=== PATIENT | female | born 1985 | race Caucasian/White ===

== ENCOUNTER → 2020-07-05 07:33 | Outpatient (CLI) | payer OTHER, BC, SELFPAY ==
--- NOTE | ~2020-07-05 | US_ITS ---
EXAMINATION: US OB >= 14 weeks Fetus DATE: 07/05/2020 08:13 INDICATION: Renal survey TECHNIQUE: Multiple obstetric sonographic images performed. FINDINGS: No prior studies for comparison. There is a single living fetus in breech presentation. The placenta is posterior without placenta pr evia. Amniotic fluid volume is subjectively normal. cardiac activity and movement is noted with a heart rate of 150 beats per minute. The following anatomy was identified as normal: 4 chamber heart 3 vessel cord cord insertion kidneys urinary bladder stomach spine diaphragm ventricles cisterna magna cerebellum The following biometric data were obtained: BPD: 50mm corresponds to gestational age 21 weeks 0 days. Head circumference: 182 mm corresponds to gestational age 20 weeks 4 days. Abdominal circumference: 157 mm corresponds to gestational age 20 weeks 6 days. Femur length: 33 mm corresponds to gestational age 20 weeks 3 days. Head circumference to abdominal circumference ratio: 1.16 (normal range for expected gestational age is 1.06-1.25). Estimated weight: 369 grams +/- 55 grams using Hadlock method. IMPRESSION: 1: Single living intrauterine with an estimated gestational age of 20weeks 5days by current ultrasound measurements, with an EDC of 11/17/2020 in breech presentation. 2. Normal survey. Reviewed, dictated and finalized at location A. IMPRESSION: 1: Single living intrauterine with an estimated gestational age of 20 weeks 5days by current ultrasound measurements, with an EDC of 11/17/2020 in uche ech presentation. 2. Normal survey.
== END ==
PROVIDERS: Visit Provider Obstetrics & Gynecology
DX: Z36.9 Encounter for antenatal screening, unspecified (principal); Z3A.20 20 weeks gestation of pregnancy
CPT/HCPCS: 76805

== ENCOUNTER → 2020-09-13 07:58 | Outpatient (CLI) | payer OTHER, BC, SELFPAY ==
--- NOTE | ~2020-09-13 | US_ITS ---
EXAMINATION: US OB follow up DATE: 09/13/2020 08:29 INDICATION: Large for gestational age TECHNIQUE: Real-time transabdominal obstetric ultrasound. FINDINGS: Comparison ultrasound dated 07/05/2020 There is a single living fetus in vertex presentation. The placenta is posterior without placenta pr evia. cardiac activity and movement is noted with a heart rate of 137 beats per minute. T he amniotic fluid volume is normal. RUBA measures 22.6 cm (normal range for gestational age is 9-23.4 cm). The following biometric data were obtained: BPD: 81mm corresponds to gestational age 32 weeks 3 days. Head circumference: 293mm corresponds to gestational age 32 weeks 2 days. Abdominal circumference: 256mm corresponds to gestational age 29 weeks 6 days. Femur length: 56mm corresponds to gestational age 29 weeks 2 days. Estimated weight: 1500grams +/- 225grams, 18.2 percentile.] IMPRESSION: 1. Single living intrauterine in vertex presentation with an estimated gestational age of 30 weeks 5 days by inititial ultrasound. Appropriate interval growth. 2: Normal RUBA measures 22.6 cm. Reviewed, dictated and finalized at location A. GER SHIFT IMPRESSION: 1. Single living intrauterine in vertex presentation with an estimat ed gestational age of 30 weeks 5 days by inititial ultrasound. Appropriate int erval growth. 2: Normal RUBA measures 22.6 cm.
== END ==
PROVIDERS: Visit Provider Obstetrics & Gynecology Gynecologic Oncology
DX: O99.213 Obesity complicating pregnancy, third trimester (principal); Z68.30 Body mass index [BMI] 30.0-30.9, adult; Z3A.30 30 weeks gestation of pregnancy
CPT/HCPCS: 76816

== ENCOUNTER → 2020-10-11 10:50 | Outpatient (CLI) | payer OTHER, BC, SELFPAY ==
--- NOTE | ~2020-10-11 | US_ITS ---
EXAMINATION: US OB follow up DATE: 10/11/2020 11:09 INDICATION: Obesity complicating . Evaluate growth. TECHNIQUE: Real-time transabdominal obstetric ultrasound. FINDINGS: Comparison to multiple prior studies sequentially, with oldest reviewed study dated 2019. There is a single living fetus in vertex presentation. The placenta is posterior/fundal without plac enta previa. cardiac activity and movement is noted with a heart rate of 146 beats per minute. T he amniotic fluid volume is normal. RUBA is 21.2 cm. The following biometric data were obtained: BPD: 89mm corresponds to gestational age 35 weeks 6 days. Head circumference: 320mm corresponds to gestational age 36 weeks 0 days. Abdominal circumference: 304mm corresponds to gestational age 34 weeks 3 days. Femur length: 61mm corresponds to gestational age 31 weeks 5 days. Estimated weight: 2315grams +/- 347grams which is 24.9 percentile.] IMPRESSION: 1. Single living intrauterine in vertex presentation with an estimated gestational age of 34 weeks 5 days by inititial ultrasound. Appropriate interval growth. 2. Normal placenta. Reviewed, dictated and finalized at location A. ERADICATOR IMPRESSION: 1. Single living intrauterine in vertex presentation with an estimat ed gestational age of 34 weeks 5 days by inititial ultrasound. Appropriate int erval growth. 2. Normal placenta.
== END ==
PROVIDERS: Visit Provider Obstetrics & Gynecology Gynecologic Oncology
DX: O99.213 Obesity complicating pregnancy, third trimester (principal); Z3A.34 34 weeks gestation of pregnancy
CPT/HCPCS: 76816

== ENCOUNTER → 2020-11-10 09:10 | Outpatient (CLI) | payer OTHER, BC, SELFPAY ==
--- NOTE | ~2020-11-10 | US_ITS ---
EXAMINATION: US OB follow up DATE: 11/10/2020 09:42 INDICATION: Large for gestational age, third trimester TECHNIQUE: Real-time ultrasound of the pelvis was performed. The interpreting radiologist was not pre sent for the study. COMPARISON: 10/11/2020 FINDINGS: There is a single living fetus in vertex presentation. The placenta is fundal/posterior. Fe sanaz cardiac activity and movement are noted. heart rate is 145 beats per minute (bpm). Th e amniotic fluid index is 16.7 cm which is normal. The following biometric data were obtained: Biparietal diameter (BPD): 9.5 cm; head circumference (HC): 34.3 cm; abdominal circumference (AC): 33 .2 cm; femur length (FL): 7.2 cm. These measurements are concordant. Estimated weight is 3280 g +/- 491 g, which correlates with the 34th percentile when 11/16/2020 is used as estimated date of delivery. As single measurements, these parameters are each equal to the following estimated gestational ages w ith ranges of +/- 2 standard deviations: BPD: 39 weeks 1 days ( 35 weeks 6 days - 42 weeks 2 days). HC: 39 weeks 5 days ( 37 weeks 0 days - 42 weeks 3 days). AC: 37 weeks 1 days ( 34 weeks 1 days - 40 weeks 1 days). FL: 37 weeks 2 days ( 34 weeks 1 days - 40 weeks 3 days). estimated gestational age based solely on measurements from this exam is 38 weeks 2 days +/- 2 weeks 5 days. IMPRESSION: 1. Single living fetus in vertex presentation. 2. Normal amniotic fluid index. 3. Estimated weight is 3280 g +/- 491 g, which correlates with the 34th percentile when 11/17/19 21 is used as estimated date of delivery. Reviewed, dictated and finalized at location A. RNAL SPECIALIST IMPRESSION: 1. Single living fetus in vertex presentation. 2. Normal amniotic fluid index. 3. Estimated weight is 3280 g +/- 491 g, which correlates with the 34th p ercentile when 11/16/2020 is used as estimated date of delivery.
== END ==
PROVIDERS: Visit Provider Obstetrics & Gynecology Gynecologic Oncology
DX: O99.213 Obesity complicating pregnancy, third trimester (principal); Z3A.38 38 weeks gestation of pregnancy
CPT/HCPCS: 76816

== ENCOUNTER 2024-10-29 08:22 | Outpatient (CLI) | payer OTHER, SELFPAY ==
--- NOTE | ~2024-10-29 | US_ITS ---
EXAMINATION: US thyroid DATE: 10/29/2024 08:41 INDICATION: Emmanuel's thyroiditis. TECHNIQUE: Multiple ultrasound images of the thyroid were obtained. COMPARISON: None. FINDINGS: The right thyroid lobe measures 6.0 x 3.1 x 2.7 cm. The left thyroid lobe measures 5.6 x 1.9 x 2.7 c m. In the right thyroid lobe, there is a 3.7 cm mixed cystic and solid, hyperechoic, wider than tall nodule with smooth margin without echogenic foci (TI-RADS TR2). In the thyroid isthmus, there is a 1 .9 cm solid, hypoechoic, wider than tall nodule with ill-defined margin without echogenic foci (TR4). In the left thyroid lobe, there is a 2.8 cm mixed cystic and solid, hypoechoic, wider than tall nodu le with smooth margin without echogenic foci (TR3). In the left thyroid lobe, there is a 7 mm solid n odule with peripheral calcifications (TR4). IMPRESSION: 1. Multinodular goiter. Ultrasound-guided fine-needle aspiration of the 1.9 cm thyroid isthmus nodule and 2.8 cm left thyroid nodule is recommended. Reviewed, dictated and finalized at location A. AND PRINT MACHINE OPERATOR
== END 2024-10-29 08:23 | disposition home or self-care (01) ==
PROVIDERS: PCP Nurse Practitioner; Visit Provider Nurse Practitioner
DX: E06.3 Autoimmune thyroiditis (principal); E01.0 Iodine-deficiency related diffuse (endemic) goiter
CPT/HCPCS: 76536